=== PATIENT | male | born 1940 | race Two or more races ===

== ENCOUNTER 2017-04-30 15:27 | Emergency (ER) | payer MEDICAID, OTHER ==
[~2017-04-30] VITALS: Ht 167.6 cm; Wt 65.8 kg
[2017-04-30] MEDS ORDERED: ACETAMINOPHEN 325 MG TAB PO ONE ×2 (15:53→16:15)
[2017-04-30 15:58] VITALS: BP 180/71
[2017-04-30 16:59] LABS: Basophils # (auto) 0 uL; Basophils % (auto) 0.2 % (0.0-2.0); Eosinophils # (auto) 0 uL; Hematocrit 30.8 % (41.0-53.0); Hemoglobin 10.1 g/dL (13.5-17.5); Lymphocytes # (auto) 0.7 uL; Lymphocytes % (auto) 8.3 % (10.0-50.0); Mean Corpuscular Hgb Conc. 32.7 g/dL (32.0-36.0); Mean Corpuscular Volume 85.6 fL (80.0-100.0); Monocytes # (auto) 0.4 uL; Neutrophils # (auto) 7.3 uL; Neutrophils % (auto) 86.5 % (37.0-80.0); Platelet Count (auto) 147 10^3/uL (140-450); Red Cell Distribution Width 15.9 % (11.8-14.3); White Blood Cell 8.5 10^3/uL (4.4-10.8)
[2017-04-30 17:25] LABS: Potassium 4.1 mmol/L (3.5-5.1)
[2017-04-30 17:26] LABS: Albumin 3.7 g/dL (3.4-5.0); BUN/Creatinine Ratio 16.7; Bilirubin, Total 0.4 mg/dL (0.2-1.0); Calcium 8.6 mg/dL (8.5-10.1); Total Protein 7.7 g/dL (6.4-8.2)
== END 2017-04-30 20:50 | disposition home or self-care (01) ==
LOC: ER 15:30
DX: J11.1 Influenza due to unidentified influenza virus with other respiratory manifestations (principal)
CPT/HCPCS: 36415; 71046; 80053; 85025

== ENCOUNTER 2017-12-27 06:50 | Inpatient (IN) | payer MEDICAID ==
[~2017-12-27] VITALS: Ht 160 cm; Wt 76.9 kg
[2017-12-27] MEDS ORDERED: SODIUM CHLORIDE 0.9% 1,000 ML IV ONE (07:29)
[2017-12-27 07:58] LABS: Basophils # (auto) 0 uL; Basophils % (auto) 0.2 % (0.0-2.0); Eosinophils # (auto) 0.1 uL; Eosinophils % (auto) 1.7 % (0.0-7.0); Hematocrit 32.6 % (41.0-53.0); Hemoglobin 10.5 g/dL (13.5-17.5); Lymphocytes # (auto) 1.3 uL; Lymphocytes % (auto) 23.7 % (10.0-50.0); Mean Corpuscular Hemoglobin 28.9 pg (28.0-32.0); Mean Corpuscular Hgb Conc. 32.1 g/dL (32.0-36.0); Monocytes # (auto) 0.4 uL; Monocytes % (auto) 7.6 % (0.0-12.0); Neutrophils # (auto) 3.6 uL; Neutrophils % (auto) 66.8 % (37.0-80.0); Platelet Count (auto) 124 10^3/uL (140-450); Red Blood Cells 3.62 10^6/uL (4.5-5.90); Red Cell Distribution Width 17.6 % (11.8-14.3); White Blood Cell 5.4 10^3/uL (4.4-10.8)
[2017-12-27 08:07] LABS: Albumin 3.6 g/dL (3.4-5.0); Calcium 8.5 mg/dL (8.5-10.1)
[2017-12-27 08:08] LABS: Lipase 602 U/L (73-393); Magnesium 2.4 mg/dL (1.6-2.6)
[2017-12-27 08:12] LABS: Urine Bacteria FEW /hpf (None Seen); Urine Blood TRACE /uL (Negative); Urine Hyaline Cast FEW /lpf (0 - 2); Urine Specific Gravity 1.012 (1.001-1.035); Urine WBC <1 /hpf (0 - 3)
[2017-12-27 08:13] LABS: BUN/Creatinine Ratio 26.6; Bilirubin, Total 0.4 mg/dL (0.2-1.0)
[2017-12-27] MEDS ORDERED: SODIUM BICARBONATE 8.4 % INJ 50ML VIAL IV ONE (08:30)
[2017-12-27] MEDS ORDERED: CALCIUM CHL 100MG/ML 1,000 MG in D5W 5% 100 ML IV ONE (08:30)
[2017-12-27] MEDS ORDERED: ATOR80TA PO (09:05)
[2017-12-27] MEDS ORDERED: ASPI81CH43 PO (09:05)
[2017-12-27] MEDS ORDERED: LOSA-46 PO (09:09)
[2017-12-27] MEDS ORDERED: PANT1INJ3 PO (09:09)
[2017-12-27] MEDS ORDERED: METO25TA4 PO (09:09)
[2017-12-27] MEDS ORDERED: INSU1INJ19 SC (09:09)
[2017-12-27] MEDS ORDERED: FER325T PO (09:09)
[2017-12-27] MEDS ORDERED: TAMS0.4C36 PO (09:09)
[2017-12-27] MEDS ORDERED: AMLO10TA12 PO (09:09)
[2017-12-27] MEDS ORDERED: TEMAZEPAM 15 MG CAP PO PRN (10:30)
[2017-12-27] MEDS ORDERED: ACETAMINOPHEN 325 MG TAB PO PRN (10:30)
[2017-12-27] MEDS ORDERED: DOCUSATE SOD 100 MG CAP PO PRN (10:30)
[2017-12-27] MEDS ORDERED: InsuLIN REG 1unit/0.01ml Soln (100units/ml) IV ONE (10:30)
[2017-12-27] MEDS ORDERED: cefTRIAXone 1GM/50ML D5W 50 ML IV ONE (10:30)
[2017-12-27] MEDS ORDERED: NITROGLYCERIN 0.4 MG SL TAB SL PRN (10:30)
[2017-12-27] MEDS ORDERED: MORPHINE SULFATE 4 MG/ML SYR/VIAL IV PRN ×2 (10:30)
[2017-12-27] MEDS ORDERED: DEXTROSE (50%) 50ML SYRG IV PRN (10:30)
[2017-12-27] MEDS ORDERED: DEXTROSE (50%) 50ML SYRG IV ONE (10:30)
[2017-12-27] MEDS ORDERED: ONDANSETRON HCL 4 MG/2 ML VIAL IV PRN (10:30)
[2017-12-27] MEDS ORDERED: cloNIDine HCL 0.1 MG TAB PO PRN (10:45)
[2017-12-27] MEDS: FAMOTIDINE 20 MG TAB PO SCH (11:09)
[2017-12-27] MEDS: InsuLIN REG 1unit/0.01ml Soln (100units/ml) SC SCH ×3 (11:30→22:00)
[2017-12-27] MEDS: ACCU-CHEK COMFORT CURVE STRIP VI SCH ×3 (11:30→22:00)
[2017-12-27] MEDS: SODIUM CHLOR 0.9% PF (SALINE LOCK) 10ML VIAL/SYR IV SCH ×2 (14:00→22:48)
[2017-12-27] MEDS: HYDROcodone-ACET 5/325MG TAB PO PRN (16:59)
[2017-12-27 17:04] VITALS: BP 169/81
[2017-12-27 18:02] LABS: Calcium 8.6 mg/dL (8.5-10.1); Potassium 5.3 mmol/L (3.5-5.1)
[2017-12-27] MEDS: TAMSULOSIN HYDROCHLORIDE 0.4 MG CAP PO SCH (18:05)
[2017-12-27 21:31] VITALS: BP 167/67
[2017-12-27] MEDS: INSULIN LANTUS (GLARGINE) 1 /0.01ml (100units/ml) SC SCH (22:00)
[2017-12-27] MEDS: ATORVASTATIN 20 MG TAB PO SCH (22:49)
[2017-12-27] MEDS: METOPROLOL SUCCINATE XL 50 MG TAB PO SCH (22:49)
[2017-12-28 05:08] VITALS: BP 162/66
[2017-12-28 06:22] LABS: Basophils # (auto) 0 uL; Basophils % (auto) 0.3 % (0.0-2.0); Eosinophils # (auto) 0.1 uL; Eosinophils % (auto) 1.7 % (0.0-7.0); Hematocrit 29.7 % (41.0-53.0); Hemoglobin 9.9 g/dL (13.5-17.5); Lymphocytes # (auto) 1.4 uL; Lymphocytes % (auto) 29.7 % (10.0-50.0); Mean Corpuscular Hemoglobin 29.6 pg (28.0-32.0); Mean Corpuscular Hgb Conc. 33.5 g/dL (32.0-36.0); Mean Corpuscular Volume 88.4 fL (80.0-100.0); Monocytes # (auto) 0.3 uL; Monocytes % (auto) 6.4 % (0.0-12.0); Neutrophils % (auto) 61.9 % (37.0-80.0); Nucleated Red Blood Cells % 0.1 %; Platelet Count (auto) 122 10^3/uL (140-450); Red Blood Cells 3.36 10^6/uL (4.5-5.90); Red Cell Distribution Width 17.1 % (11.8-14.3); White Blood Cell 4.8 10^3/uL (4.4-10.8)
[2017-12-28 06:27] LABS: Albumin 3.2 g/dL (3.4-5.0); BUN/Creatinine Ratio 31.1; Calcium 8.8 mg/dL (8.5-10.1); Potassium 4.7 mmol/L (3.5-5.1)
[2017-12-28 06:29] LABS: Bilirubin, Total 0.5 mg/dL (0.2-1.0); Total Protein 6.6 g/dL (6.4-8.2)
[2017-12-28 06:32] LABS: Uric Acid 7.6 mg/dL (3.5-7.2)
[2017-12-28] MEDS: InsuLIN REG 1unit/0.01ml Soln (100units/ml) SC SCH ×4 (07:00→22:24)
[2017-12-28] MEDS: SODIUM CHLOR 0.9% PF (SALINE LOCK) 10ML VIAL/SYR IV SCH ×3 (07:01→22:25)
[2017-12-28] MEDS: ACCU-CHEK COMFORT CURVE STRIP VI SCH ×4 (07:02→22:24)
[2017-12-28] MEDS: HYDROcodone-ACET 5/325MG TAB PO PRN ×2 (08:39→15:20)
[2017-12-28] MEDS: cefTRIAXone 1GM/50ML D5W 50 ML IV SCH (08:39)
[2017-12-28 09:30] VITALS: BP 129/63
[2017-12-28] MEDS: amLODIPine BESYLATE 5 MG TAB PO SCH (10:13)
[2017-12-28] MEDS: MULTIPLE VITAMIN TAB PO SCH (10:13)
[2017-12-28] MEDS: FERROUS SULFATE 325 MG TAB PO SCH (10:14)
[2017-12-28] MEDS: FAMOTIDINE 20 MG TAB PO SCH (10:14)
[2017-12-28] MEDS: ASPirin-EC 81 mg tab PO SCH (10:14)
[2017-12-28] MEDS: PANTOPRAZOLE 40 MG TAB PO SCH (10:15)
[2017-12-28] MEDS: METOPROLOL SUCCINATE XL 50 MG TAB PO SCH ×2 (10:16→22:00)
[2017-12-28 13:21] VITALS: BP 154/75
[2017-12-28 17:20] VITALS: BP 144/89
[2017-12-28] MEDS: TAMSULOSIN HYDROCHLORIDE 0.4 MG CAP PO SCH (18:02)
[2017-12-28 21:34] VITALS: BP 157/68
[2017-12-28] MEDS: ATORVASTATIN 20 MG TAB PO SCH (22:23)
[2017-12-28] MEDS: INSULIN LANTUS (GLARGINE) 1 /0.01ml (100units/ml) SC SCH (22:24)
[2017-12-29 04:51] VITALS: BP 157/72
[2017-12-29 05:58] LABS: Potassium 4.8 mmol/L (3.5-5.1)
[2017-12-29] MEDS: SODIUM CHLOR 0.9% PF (SALINE LOCK) 10ML VIAL/SYR IV SCH ×3 (06:00→22:29)
[2017-12-29 06:01] LABS: Basophils # (auto) 0 uL; Basophils % (auto) 0.2 % (0.0-2.0); Eosinophils # (auto) 0.1 uL; Eosinophils % (auto) 1.5 % (0.0-7.0); Hematocrit 31.3 % (41.0-53.0); Hemoglobin 10.1 g/dL (13.5-17.5); Lymphocytes # (auto) 1.4 uL; Mean Corpuscular Hemoglobin 28.3 pg (28.0-32.0); Mean Corpuscular Hgb Conc. 32.2 g/dL (32.0-36.0); Monocytes # (auto) 0.4 uL; Monocytes % (auto) 7.9 % (0.0-12.0); Neutrophils # (auto) 2.7 uL; Neutrophils % (auto) 59.4 % (37.0-80.0); Platelet Count (auto) 130 10^3/uL (140-450); Red Blood Cells 3.55 10^6/uL (4.5-5.90); Red Cell Distribution Width 17.4 % (11.8-14.3); White Blood Cell 4.6 10^3/uL (4.4-10.8)
[2017-12-29 06:06] LABS: Albumin 3.1 g/dL (3.4-5.0); BUN/Creatinine Ratio 27.2; Bilirubin, Total 0.4 mg/dL (0.2-1.0); CRP High Sensitivity 0.3 mg/dL (< 0.3); Calcium 8.4 mg/dL (8.5-10.1); Total Protein 6.8 g/dL (6.4-8.2)
[2017-12-29] MEDS: InsuLIN REG 1unit/0.01ml Soln (100units/ml) SC SCH ×4 (06:50→22:00)
[2017-12-29] MEDS: ACCU-CHEK COMFORT CURVE STRIP VI SCH ×4 (06:51→22:00)
[2017-12-29] MEDS: cefTRIAXone 1GM/50ML D5W 50 ML IV SCH (09:12)
[2017-12-29] MEDS: MULTIPLE VITAMIN TAB PO SCH (09:13)
[2017-12-29] MEDS: FERROUS SULFATE 325 MG TAB PO SCH (09:13)
[2017-12-29] MEDS: FAMOTIDINE 20 MG TAB PO SCH (09:14)
[2017-12-29] MEDS: PANTOPRAZOLE 40 MG TAB PO SCH (09:14)
[2017-12-29] MEDS: amLODIPine BESYLATE 5 MG TAB PO SCH (09:14)
[2017-12-29] MEDS: ASPirin-EC 81 mg tab PO SCH (09:14)
[2017-12-29] MEDS: METOPROLOL SUCCINATE XL 50 MG TAB PO SCH ×2 (09:16→22:00)
[2017-12-29 09:38] LABS: Urine Amorphous Crystal FEW /hpf (None Seen); Urine Bacteria FEW /hpf (None Seen); Urine Blood TRACE /uL (Negative); Urine Hyaline Cast FEW /lpf (0 - 2); Urine Specific Gravity 1.013 (1.001-1.035); Urine WBC 1 /hpf (0 - 3)
[2017-12-29 09:40] VITALS: BP 162/65
[2017-12-29 09:48] LABS: Protein, Urine 128.5 mg/dL (0.0-11.9)
[2017-12-29 13:45] VITALS: BP 145/54
[2017-12-29] MEDS ORDERED: LORazepam 2MG/ML-1ML VIAL IV ONE (16:15)
[2017-12-29] MEDS ORDERED: SODIUM CHLORIDE 0.9% 1,000 ML IV SCH (16:15)
[2017-12-29 17:01] VITALS: BP 137/61
[2017-12-29] MEDS: SOD CHL 0.45% 1,000 ML IV SCH (18:10)
[2017-12-29] MEDS: TAMSULOSIN HYDROCHLORIDE 0.4 MG CAP PO SCH (18:10)
[2017-12-29 21:42] VITALS: BP 153/68
[2017-12-29] MEDS: INSULIN LANTUS (GLARGINE) 1 /0.01ml (100units/ml) SC SCH (22:00)
[2017-12-29] MEDS: ATORVASTATIN 20 MG TAB PO SCH (22:00)
[2017-12-30 05:00] VITALS: BP 132/67
[2017-12-30 05:04] LABS: Basophils # (auto) 0 uL; Basophils % (auto) 0.2 % (0.0-2.0); Eosinophils # (auto) 0.2 uL; Eosinophils % (auto) 3.7 % (0.0-7.0); Hematocrit 29.2 % (41.0-53.0); Hemoglobin 9.4 g/dL (13.5-17.5); Lymphocytes # (auto) 1.5 uL; Mean Corpuscular Hemoglobin 28.7 pg (28.0-32.0); Mean Corpuscular Hgb Conc. 32.3 g/dL (32.0-36.0); Mean Corpuscular Volume 88.7 fL (80.0-100.0); Monocytes # (auto) 0.3 uL; Monocytes % (auto) 7.9 % (0.0-12.0); Neutrophils # (auto) 2.3 uL; Neutrophils % (auto) 53.2 % (37.0-80.0); Platelet Count (auto) 117 10^3/uL (140-450); Red Blood Cells 3.29 10^6/uL (4.5-5.90); Red Cell Distribution Width 16.7 % (11.8-14.3); White Blood Cell 4.4 10^3/uL (4.4-10.8)
[2017-12-30 05:28] LABS: BUN/Creatinine Ratio 23.8; Calcium 7.9 mg/dL (8.5-10.1); Potassium 4.5 mmol/L (3.5-5.1)
[2017-12-30] MEDS: ACCU-CHEK COMFORT CURVE STRIP VI SCH ×4 (07:00→22:00)
[2017-12-30] MEDS: InsuLIN REG 1unit/0.01ml Soln (100units/ml) SC SCH ×4 (07:00→22:30)
[2017-12-30] MEDS: SODIUM CHLOR 0.9% PF (SALINE LOCK) 10ML VIAL/SYR IV SCH ×4 (07:30→22:30)
[2017-12-30] MEDS: SOD CHL 0.45% 1,000 ML IV SCH ×3 (07:46→22:23)
[2017-12-30 09:15] VITALS: BP 142/67
[2017-12-30] MEDS: METOPROLOL SUCCINATE XL 50 MG TAB PO SCH (09:34)
[2017-12-30] MEDS: ASPirin-EC 81 mg tab PO SCH (09:37)
[2017-12-30] MEDS: MULTIPLE VITAMIN TAB PO SCH (09:37)
[2017-12-30] MEDS: PANTOPRAZOLE 40 MG TAB PO SCH (09:37)
[2017-12-30] MEDS: FERROUS SULFATE 325 MG TAB PO SCH (09:38)
[2017-12-30] MEDS: amLODIPine BESYLATE 5 MG TAB PO SCH (09:38)
[2017-12-30 13:00] VITALS: BP 156/66
[2017-12-30] MEDS ORDERED: HYDROcodone-ACET 5/325MG TAB PO PRN (13:30)
[2017-12-30] MEDS ORDERED: hydrALAZINE HCL 20 MG/ML VL IV PRN (13:30)
[2017-12-30] MEDS: TAMSULOSIN HYDROCHLORIDE 0.4 MG CAP PO SCH (16:45)
[2017-12-30 17:00] VITALS: BP 156/70
[2017-12-30 21:56] VITALS: BP 154/72
[2017-12-30] MEDS: INSULIN LANTUS (GLARGINE) 1 /0.01ml (100units/ml) SC SCH (22:00)
[2017-12-30] MEDS: ATORVASTATIN 20 MG TAB PO SCH (22:23)
[2017-12-31 04:52] VITALS: BP 146/71
[2017-12-31] MEDS: InsuLIN REG 1unit/0.01ml Soln (100units/ml) SC SCH ×2 (07:00→11:30)
[2017-12-31] MEDS: ACCU-CHEK COMFORT CURVE STRIP VI SCH ×2 (07:00→11:30)
[2017-12-31 07:21] LABS: Calcium 8.4 mg/dL (8.5-10.1); Potassium 4.6 mmol/L (3.5-5.1)
[2017-12-31 07:24] LABS: BUN/Creatinine Ratio 24.7
[2017-12-31 08:00] VITALS: BP 145/55
[2017-12-31] MEDS: SOD CHL 0.45% 1,000 ML IV SCH (08:45)
[2017-12-31] MEDS ORDERED: hydrALAZINE HCL 25 MG TAB PO ONE (09:00)
[2017-12-31] MEDS: PANTOPRAZOLE 40 MG TAB PO SCH (09:42)
[2017-12-31] MEDS: amLODIPine BESYLATE 5 MG TAB PO SCH (09:42)
[2017-12-31] MEDS: FERROUS SULFATE 325 MG TAB PO SCH (09:43)
[2017-12-31] MEDS: MULTIPLE VITAMIN TAB PO SCH (09:43)
[2017-12-31] MEDS: ASPirin-EC 81 mg tab PO SCH (09:43)
[2017-12-31] MEDS ORDERED: HYDR-4296 PO (10:13)
[2017-12-31 10:44] VITALS: BP 145/55
[2017-12-31 12:00] VITALS: BP 158/66
[2017-12-31] MEDS ORDERED: hydrALAZINE HCL 25 MG TAB PO SCH (14:00)
== END 2017-12-31 12:42 | DRG 282 ==
LOC: ER 06:50 → TELE-WESTW 06:51
PROVIDERS: ADMIT Internal Medicine; ATTEND Internal Medicine
DX: K85.90 Acute pancreatitis without necrosis or infection, unspecified (principal); N17.0 Acute kidney failure with tubular necrosis; E10.21 Type 1 diabetes mellitus with diabetic nephropathy; E87.5 Hyperkalemia; G45.9 Transient cerebral ischemic attack, unspecified; N39.0 Urinary tract infection, site not specified; N18.4 Chronic kidney disease, stage 4 (severe); D63.8 Anemia in other chronic diseases classified elsewhere; N40.0 Benign prostatic hyperplasia without lower urinary tract symptoms; K21.9 Gastro-esophageal reflux disease without esophagitis; I70.0 Atherosclerosis of aorta; K40.90 Unilateral inguinal hernia, without obstruction or gangrene, not specified as recurrent; K44.9 Diaphragmatic hernia without obstruction or gangrene; K74.60 Unspecified cirrhosis of liver; R00.1 Bradycardia, unspecified; E78.5 Hyperlipidemia, unspecified; E10.22 Type 1 diabetes mellitus with diabetic chronic kidney disease; I12.9 Hypertensive chronic kidney disease with stage 1 through stage 4 chronic kidney disease, or unspecified chronic kidney disease; Z79.4 Long term (current) use of insulin; Z93.3 Colostomy status
CPT/HCPCS: 36415; 70450; 70551; 71046; 74176; 76775; 80048; 80053; 81001; 82140; 82150; 82306; 82570; 82962; 83036; 83690; 83735; 84100; 84156; 84300; 84443; 84484; 84550; 85025; 86141; 87040; 87086; 93005; 93306; 93886; 96374; 96375; G0378; J0696; J1815; J7060